=== PATIENT | male | born 1965 | race Caucasian/White ===

== ENCOUNTER 2024-07-06 05:06 | Inpatient (IN) ==
[2024-07-01 10:03] LABS: Basophils # (Auto) 0.03 K/mcL (0.00-0.30); Basophils % (Auto) 0.7 % (0.0-2.0); Eosinophils # (Auto) 0.12 K/mcL (0.00-0.70); Eosinophils % (Auto) 2.6 % (0.0-7.0); Hematocrit 37.4 % (40.1-51.0); Hemoglobin 11.7 g/dL (13.7-17.5); Lymphocytes # (Auto) 0.92 K/mcL (1.50-4.80); Lymphocytes % (Auto) 20.3 % (15.5-49.0); Mean Cell Volume 90.1 fL (80.0-100.0); Mean Corpuscular HGB Conc 31.3 g/dL (31.0-36.0); Mean Platelet Volume 10.3 fL (8.8-12.5); Monocytes # (Auto) 0.83 K/mcL (0.10-0.90); Monocytes % (Auto) 18.3 % (1.0-12.0); Platelet Count 212 K/mcL (140-440); RBC 4.15 M/mcL (4.63-6.08); Red Cell Distribution Width 15.2 % (11.5-14.5); WBC 4.5 K/mcL (4.5-11.0)
[2024-07-01 10:25] LABS: ALT/SGPT 23 U/L (<40); AST/SGOT 29 U/L (<40); Albumin 4.3 gm/dL (3.2-5.2); Albumin/Globulin Ratio 1.4 (1.0-2.3); Alkaline Phosphatase 76 U/L (39-117); Bilirubin,Total 0.4 mg/dL (0.1-1.0); Blood Urea Nitrogen 19 mg/dL (6-20); Calcium 9.2 mg/dL (8.6-10.4); Carbon Dioxide 24 mmol/L (22-30); Chloride 105 mmol/L (96-108); Glomerular Filtration Rate 66; Glucose 106 mg/dL (70-105); Potassium 4.2 mmol/L (3.3-5.1); Sodium 139 mmol/L (133-145)
[2024-07-06] MEDS ORDERED: ONDANSETRON 4 MG/2 ML VIAL ONE (06:50)
[2024-07-06] MEDS ORDERED: SUGAMMADEX SODIUM 200 MG/2 ML VIAL IV ONE (06:50)
[2024-07-06] MEDS ORDERED: GLYCOPYRROLATE 0.2 MG/ML VIAL IV ONE ×2 (06:50→12:26)
[2024-07-06] MEDS ORDERED: ROCURONIUM 10 MG/ML ML IV ONE ×2 (06:50→09:16)
[2024-07-06] MEDS ORDERED: LIDOCAINE 2% PF 5 ML VIAL ONE (06:50)
[2024-07-06] MEDS ORDERED: HYDROmorphone 0.5 MG/0.5 ML SYRINGE ONE ×2 (06:50→08:48)
[2024-07-06] MEDS ORDERED: fentaNYL 100 MCG/2 ML VIAL ONE (06:50)
[2024-07-06] MEDS ORDERED: PROPOFOL 200 MG/20 ML VIAL IV ONE (06:50)
[2024-07-06] MEDS ORDERED: DEXAMETHASONE 10 MG/ML VIAL ONE (06:50)
[2024-07-06] MEDS ORDERED: KETAMINE 50 MG/ML Syringe IV ONE (06:57)
[2024-07-06] MEDS ORDERED: MIDAZOLAM 2 MG/2 ML VIAL ONE (07:18)
[2024-07-06] MEDS: PIPERACILLIN SODIUM/TAZOBACTAM 3.375 GM in DEXTROSE 5% IN WATER 50 ML IV SCH (07:19)
[2024-07-06] MEDS ORDERED: MAGNESIUM SULFATE 2 GM/50 ML BAG IV ONE (07:51)
[2024-07-06] MEDS ORDERED: PHENYLephrine 1 MG/10 ML SYRINGE (ANEST) ONE (07:56)
[2024-07-06] MEDS ORDERED: ePHEDrine 50 MG/5 ML SYRINGE (ANEST) IV ONE (08:06)
[2024-07-06] MEDS: LIDOCAINE 2% URO-JET 10 ML JEL.PF.APP UR ONE (08:08)
[2024-07-06] MEDS ORDERED: ePHEDrine 50 MG/ML AMPUL IV ONE (08:12)
[2024-07-06] MEDS ORDERED: PHENYLEPHRINE 10 MG/ML VIAL ONE (08:39)
[2024-07-06] MEDS ORDERED: VASOPRESSIN 20 UNIT/ML VIAL ONE (08:42)
[2024-07-06] MEDS: ALBUMIN HUMAN 25 GM/100 ML BAG IV ONE (08:44)
[2024-07-06] MEDS ORDERED: ROPIVACAINE HCL/PF 30 ML VIAL IJ ONE (08:48)
[2024-07-06] MEDS ORDERED: ONDANSETRON 4 MG/2 ML VIAL IV PRN ×2 (11:34→12:31)
[2024-07-06] MEDS ORDERED: IPRATROPIUM/ALBUTEROL 3 ML AMPUL.NEB NEB PRN (11:34)
[2024-07-06] MEDS ORDERED: HYDROmorphone 0.5 MG/0.5 ML SYRINGE IV PRN (11:34)
[2024-07-06] MEDS: BACITRACIN TOPICAL OINT 15 GM TUBE TOPICAL ONE (12:00)
[2024-07-06] MEDS: ACETAMINOPHEN 1,000 MG/100 ML BAG IV ONE (12:30)
[2024-07-06] MEDS: fentaNYL 100 MCG/2 ML VIAL IV PRN (13:13)
[2024-07-06] MEDS: DEXTROSE 5%-LR 1,000 ML IV SCH (13:24)
[2024-07-06] MEDS: HYDROmorphone 0.5 MG/0.5 ML SYRINGE IV PRN ×2 (13:39→15:24)
[2024-07-06] MEDS: LACTATED RINGERS 1,000 ML IV SCH (13:44)
[2024-07-06] MEDS: PIPERACILLIN SODIUM/TAZOBACTAM 4.5 GM in DEXTROSE 5% IN WATER 100 ML IV SCH (14:38)
[2024-07-06] MEDS: PANTOPRAZOLE 40 MG VIAL IV SCH (16:44)
[2024-07-06] MEDS: ACETAMINOPHEN 1,000 MG/100 ML BAG IV SCH (20:03)
[2024-07-06] MEDS: 0.9 % SODIUM CHLORIDE 250 ML IV SCH (20:13)
[2024-07-07 06:36] LABS: Hematocrit 32.8 % (40.1-51.0); Hemoglobin 10.2 g/dL (13.7-17.5); Mean Cell Volume 91.1 fL (80.0-100.0); Mean Corpuscular HGB Conc 31.1 g/dL (31.0-36.0); Platelet Count 194 K/mcL (140-440); Red Cell Distribution Width 15.6 % (11.5-14.5); WBC 17.6 K/mcL (4.5-11.0)
[2024-07-07 07:01] LABS: Blood Urea Nitrogen 14 mg/dL (6-20); Calcium 8.7 mg/dL (8.6-10.4); Carbon Dioxide 24 mmol/L (22-30); Chloride 105 mmol/L (96-108); Glomerular Filtration Rate 60; Glucose 126 mg/dL (70-105); Sodium 140 mmol/L (133-145)
[2024-07-07] MEDS: morphine 2 MG/ML VIAL IV PRN (14:30)
[2024-07-07] MEDS: LORazepam 2 MG/ML VIAL IV PRN (19:51)
[2024-07-08 06:39] LABS: Hematocrit 32.8 % (40.1-51.0); Hemoglobin 10.1 g/dL (13.7-17.5); Mean Cell Volume 92.4 fL (80.0-100.0); Mean Corpuscular HGB Conc 30.8 g/dL (31.0-36.0); Mean Platelet Volume 10.9 fL (8.8-12.5); Platelet Count 203 K/mcL (140-440); RBC 3.55 M/mcL (4.63-6.08); Red Cell Distribution Width 16.1 % (11.5-14.5); WBC 9.7 K/mcL (4.5-11.0)
[2024-07-08 07:15] LABS: Blood Urea Nitrogen 11 mg/dL (6-20); Calcium 8.8 mg/dL (8.6-10.4); Carbon Dioxide 26 mmol/L (22-30); Chloride 107 mmol/L (96-108); Glomerular Filtration Rate 60; Glucose 108 mg/dL (70-105); Potassium 3.7 mmol/L (3.3-5.1); Sodium 143 mmol/L (133-145)
[2024-07-08] MEDS: HEPARIN 5,000 UNIT/ML VIAL SQ SCH (08:57)
[2024-07-09 06:22] LABS: Blood Urea Nitrogen 10 mg/dL (6-20); Carbon Dioxide 24 mmol/L (22-30); Chloride 105 mmol/L (96-108); Glomerular Filtration Rate 60; Glucose 96 mg/dL (70-105); Potassium 3.8 mmol/L (3.3-5.1); Sodium 141 mmol/L (133-145)
[2024-07-09 07:07] LABS: Hematocrit 33.7 % (40.1-51.0); Hemoglobin 10.2 g/dL (13.7-17.5); Mean Cell Volume 92.1 fL (80.0-100.0); Mean Corpuscular HGB Conc 30.3 g/dL (31.0-36.0); Mean Platelet Volume 10.9 fL (8.8-12.5); Platelet Count 230 K/mcL (140-440); RBC 3.66 M/mcL (4.63-6.08); Red Cell Distribution Width 15.9 % (11.5-14.5); WBC 7.1 K/mcL (4.5-11.0)
[2024-07-10] MEDS: HYDROCHLOROTHIAZIDE 25 MG TABLET PO SCH (08:10)
[2024-07-10] MEDS: LOSARTAN 50 MG TABLET PO SCH (08:10)
[2024-07-10 10:58] LABS: Basophils # (Auto) 0.03 K/mcL (0.00-0.30); Basophils % (Auto) 0.5 % (0.0-2.0); Eosinophils # (Auto) 0.18 K/mcL (0.00-0.70); Eosinophils % (Auto) 3.2 % (0.0-7.0); Hematocrit 37.8 % (40.1-51.0); Hemoglobin 11.7 g/dL (13.7-17.5); Lymphocytes # (Auto) 1.05 K/mcL (1.50-4.80); Lymphocytes % (Auto) 18.6 % (15.5-49.0); Mean Cell Volume 91.5 fL (80.0-100.0); Mean Platelet Volume 9.7 fL (8.8-12.5); Monocytes # (Auto) 0.67 K/mcL (0.10-0.90); Monocytes % (Auto) 11.8 % (1.0-12.0); Platelet Count 246 K/mcL (140-440); RBC 4.13 M/mcL (4.63-6.08); Red Cell Distribution Width 15.6 % (11.5-14.5); WBC 5.7 K/mcL (4.5-11.0)
[2024-07-10 11:23] LABS: Blood Urea Nitrogen 10 mg/dL (6-20); Calcium 9.8 mg/dL (8.6-10.4); Carbon Dioxide 25 mmol/L (22-30); Chloride 105 mmol/L (96-108); Glomerular Filtration Rate 66; Glucose 111 mg/dL (70-105); Sodium 141 mmol/L (133-145)
[2024-07-10] MEDS: TAMSULOSIN 0.4 MG CAPSULE PO SCH (20:28)
[2024-07-11 06:23] LABS: Blood Urea Nitrogen 11 mg/dL (6-20); Calcium 9.3 mg/dL (8.6-10.4); Carbon Dioxide 25 mmol/L (22-30); Chloride 104 mmol/L (96-108); Glomerular Filtration Rate 60; Glucose 104 mg/dL (70-105); Potassium 3.4 mmol/L (3.3-5.1); Sodium 141 mmol/L (133-145)
[2024-07-11 06:24] LABS: Basophils # (Auto) 0.04 K/mcL (0.00-0.30); Basophils % (Auto) 0.7 % (0.0-2.0); Eosinophils # (Auto) 0.24 K/mcL (0.00-0.70); Eosinophils % (Auto) 4.5 % (0.0-7.0); Hematocrit 34.1 % (40.1-51.0); Hemoglobin 10.7 g/dL (13.7-17.5); Lymphocytes # (Auto) 1.06 K/mcL (1.50-4.80); Lymphocytes % (Auto) 19.7 % (15.5-49.0); Mean Cell Volume 90.2 fL (80.0-100.0); Mean Corpuscular HGB Conc 31.4 g/dL (31.0-36.0); Mean Platelet Volume 10.4 fL (8.8-12.5); Monocytes # (Auto) 0.84 K/mcL (0.10-0.90); Monocytes % (Auto) 15.6 % (1.0-12.0); Neutrophils % (Auto) 58.4 % (38.0-78.0); Platelet Count 203 K/mcL (140-440); RBC 3.78 M/mcL (4.63-6.08); Red Cell Distribution Width 15.6 % (11.5-14.5); WBC 5.4 K/mcL (4.5-11.0)
[2024-07-11] MEDS: amLODIPine 10 MG TABLET PO SCH (08:17)
[2024-07-12 06:07] LABS: Hematocrit 33.3 % (40.1-51.0); Hemoglobin 10.6 g/dL (13.7-17.5); Mean Cell Volume 90.7 fL (80.0-100.0); Mean Corpuscular HGB Conc 31.8 g/dL (31.0-36.0); Mean Platelet Volume 10.1 fL (8.8-12.5); Platelet Count 191 K/mcL (140-440); RBC 3.67 M/mcL (4.63-6.08); Red Cell Distribution Width 15.6 % (11.5-14.5)
[2024-07-12 06:23] LABS: Blood Urea Nitrogen 11 mg/dL (6-20); Calcium 9.2 mg/dL (8.6-10.4); Carbon Dioxide 23 mmol/L (22-30); Chloride 105 mmol/L (96-108); Glomerular Filtration Rate 66; Glucose 106 mg/dL (70-105); Potassium 3.3 mmol/L (3.3-5.1); Sodium 139 mmol/L (133-145)
[2024-07-12] MEDS ORDERED: ACETAMINOPHEN 1,000 MG/100 ML BAG IV PRN (13:33)
[2024-07-12] MEDS: DEXTROSE 5%-LR 1,000 ML IV SCH (14:50)
[2024-07-13 07:07] LABS: Hematocrit 36.3 % (40.1-51.0); Hemoglobin 11.4 g/dL (13.7-17.5); Mean Cell Volume 90.8 fL (80.0-100.0); Mean Corpuscular HGB Conc 31.4 g/dL (31.0-36.0); Mean Platelet Volume 10.1 fL (8.8-12.5); Platelet Count 203 K/mcL (140-440); Red Cell Distribution Width 15.8 % (11.5-14.5); WBC 8.7 K/mcL (4.5-11.0)
[2024-07-13 07:44] LABS: Blood Urea Nitrogen 11 mg/dL (6-20); Calcium 9.8 mg/dL (8.6-10.4); Carbon Dioxide 24 mmol/L (22-30); Chloride 102 mmol/L (96-108); Glomerular Filtration Rate 60; Glucose 112 mg/dL (70-105); Potassium 3.6 mmol/L (3.3-5.1); Sodium 138 mmol/L (133-145)
[2024-07-14 06:50] LABS: Basophils # (Auto) 0.03 K/mcL (0.00-0.30); Basophils % (Auto) 0.3 % (0.0-2.0); Eosinophils % (Auto) 1.1 % (0.0-7.0); Hemoglobin 10.6 g/dL (13.7-17.5); Lymphocytes # (Auto) 1.06 K/mcL (1.50-4.80); Lymphocytes % (Auto) 11.7 % (15.5-49.0); Mean Cell Volume 89.4 fL (80.0-100.0); Mean Corpuscular HGB Conc 32.1 g/dL (31.0-36.0); Mean Platelet Volume 10.7 fL (8.8-12.5); Monocytes # (Auto) 1.75 K/mcL (0.10-0.90); Monocytes % (Auto) 19.4 % (1.0-12.0); Neutrophils % (Auto) 66.7 % (38.0-78.0); Platelet Count 186 K/mcL (140-440); RBC 3.69 M/mcL (4.63-6.08); Red Cell Distribution Width 16.2 % (11.5-14.5)
[2024-07-14 07:01] LABS: Blood Urea Nitrogen 13 mg/dL (6-20); Calcium 9.2 mg/dL (8.6-10.4); Carbon Dioxide 22 mmol/L (22-30); Chloride 102 mmol/L (96-108); Glomerular Filtration Rate 66; Glucose 100 mg/dL (70-105); Potassium 3.2 mmol/L (3.3-5.1); Sodium 137 mmol/L (133-145)
[2024-07-14] MEDS: PANTOPRAZOLE 40 MG TABLET PO SCH (07:57)
[2024-07-14 12:10] VITALS: TEMP 98.2; O2SAT 94
== END 2024-07-14 13:28 | disposition home or self-care (01) | DRG 330 ==
LOC: MEDSUR 05:06
PROVIDERS: ADMIT Surgery Surgical Critical Care; ATTEND Family Medicine Adult Medicine